=== PATIENT | male | born 1955 | race African-American/Black ===

== ENCOUNTER 2016-06-17 21:35 | Emergency (ER) | payer MEDICARE ==
--- NOTE | ~2016-06-17 | EKG ---
PATIENT: JOSE CHISHOLM UNIT #: [id number] Ventricular Rate: 71 BPM Atrial Rate: 71 BPM P-R Interval: 166 ms QRS Duration: 86 ms Q-T Interval: 396 ms QTC Calculation(Bezet): 430 ms P [place]: 30 degrees Calculated R [place]: 4 degrees Calculated T [place]: 6 degrees Diagnosis Line: Normal sinus rhythm Diagnosis Line: Low voltage QRS Diagnosis Line: Borderline ECG Diagnosis Line: No previous ECGs available Diagnosis Line: Confirmed by TALA FORREST MD ([id number]) on 06/20/2016 Diagnosis Line: 10:56:13 PM INTERPRETING MD: LON TUCKER
--- NOTE | ~2016-06-17 | CR63 ---
[facility] A Service of [facility] & [facility] RADIOLOGY TEXT RESULTS PATIENT: JOSE CHISHOLM LOCATION: CFTX : 51 UNIT #: [id number] AGE: [address]: Samuel Toth SEX: M ORDER DR: [id number] [facility] [address] [place], [place] [address] [id number] MR#: [id number] Acc #: [id number] NAME: JOSE CHISHOLM : 1955 SEX: M STUDY DATE/TIME: 06/17/2016 22:06 UNIT: CFVT ROOM: STUDY DESCRIPTION: CR Chest 2 View Attending Physician: Samuel Toth P.A.-C. Ordering Physician: Samuel Toth P.A.-C. Primary Care Physician: [facility] MEDICAL IMAGING REPORT This report is preliminary unless electronic signature is present EXAM Two-view chest, 06/17/2016 HISTORY 61-year-old male with shortness of air for 1-2 weeks COMPARISON Acute abdomen series, 11/23/2003 FINDINGS 1 frontal view and 2 lateral views of the chest. 3 total images. The lungs and pleural spaces are clear. No pneumothorax. Heart size and mediastinum are normal. Pulmonary vasculature unremarkable. IMPRESSION No acute cardiopulmonary findings. Dictated by... Anant Hernandes M.D. THIS IS AN ELECTRONICALLY VERIFIED REPORT Anant Hernandes M.D. at 06/19/2016 4:41 PM RUFUS/marcos TD: 06/18/2016 15:59 JOB #: [id number] MEDICAL IMAGING REPORT Page 1 of 1 COPY
[~2016-06-17 21:35] MED LIST: PERCOCET; SKELAXIN; VICODIN 5/500 T1 TAB
[2016-06-17 23:01] LABS: BASOPHIL% 0.5 % (0-2.5); EOSINOPHIL# 0.1 X10e3 (0-0.7); EOSINOPHIL% 1.7 % (0.0-7.0); HEMATOCRIT 42.1 % (38.0-50.0); HEMOGLOBIN 13.4 gm/dL (13.0-16.0); LYMPHOCYTE# 2.2 X10e3 (1.0-3.5); LYMPHOCYTE% 30.4 % (17.0-45.0); MEAN CELL VOLUME 92.1 FL (83-96); MEAN CORPUSCULAR HEMOGLOBIN 29.3 PG (28-34); MEAN CORPUSCULAR HGB CONC 31.8 g/dL (30-36); MEAN PLATELET VOLUME 9.7 FL (6.5-11.5); MONOCYTE# 0.6 X10e3 (0-1.0); MONOCYTE% 8.2 % (3.0-12.0); NEUTROPHIL# 4.3 X10e3 (1.5-7.1); NEUTROPHIL% 59.2 % (40-75); PLATELET COUNT 145 X10e3 (140-420); RED BLOOD COUNT 4.56 X10e (3.90-5.60); RED CELL DISTRIBUTION WIDTH 13.6 % (11.0-15.5); WHITE BLOOD COUNT 7.3 X10e3 (4.0-10.5)
[2016-06-17 23:10] LABS: DIFF IND NO
[2016-06-17 23:23] LABS: ALBUMIN SERUM 3.7 g/dL (3.5-5.0); BILIRUBIN, DIRECT 0.1 mg/dL (0.0-0.2); BILIRUBIN,INDIRECT 0.7 mg/dL (0.0-0.9); BILIRUBIN,TOTAL 0.8 mg/dL (0.2-2.0); CALCIUM SERUM 8.6 mg/dL (8.4-10.2); CREATININE SERUM 0.9 mg/dL (0.6-1.4); MAGNESIUM 1.7 mg/dL (1.6-3.0); POTASSIUM 3.6 mmol/L (3.5-5.1); PROTEIN TOTAL SERUM 6.9 g/dL (6.0-8.3)
== END 2016-06-18 01:05 | disposition home or self-care (01) ==
LOC: CED 21:35
PROVIDERS: Physician Assistant
DX: I87.8 Other specified disorders of veins (principal); E78.5 Hyperlipidemia, unspecified
CPT/HCPCS: 36415; 71020; 80048; 80076; 83735; 83880; 84443; 84484; 85025; 93005; 99283